=== PATIENT | female | born 1970 | race Caucasian/White ===

== ENCOUNTER 2022-03-05 18:27 | Emergency (ER) | payer SELFPAY ==
[2022-03-05 19:44] LABS: ACETAMINOPHEN <2.0 ug/mL; BLOOD UREA NITROGEN,BUN 13 mg/dL (7.0-18.0); CARBON DIOXIDE,CO2 27.2 mmol/L (21.0-32.0); CHLORIDE,CL 108 mmol/L (98-107); GLUCOSE RANDOM 118 mg/dL (74-106); POTASSIUM,K 3.6 mmol/L (3.5-5.1); SODIUM,NA 145 mmol/L (136-145)
[2022-03-05] MEDS: Acetaminophen 500 MG Tab PO ONE (22:26)
[2022-03-05] MEDS: LORazepam 2 MG/ML SDV IM ONE (23:14)
[2022-03-05] MEDS: Haloperidol Lactate 5 MG/ML SDV IM ONE (23:15)
== END 2022-03-06 11:58 ==
LOC: MW.ED 18:27
DX: F99 Mental disorder, not otherwise specified (principal); R45.851 Suicidal ideations; E11.9 Type 2 diabetes mellitus without complications; E78.00 Pure hypercholesterolemia, unspecified; I10 Essential (primary) hypertension; Z86.73 Personal history of transient ischemic attack (TIA), and cerebral infarction without residual deficits; Z79.82 Long term (current) use of aspirin; Z79.4 Long term (current) use of insulin; Z79.899 Other long term (current) drug therapy; Z20.822 Contact with and (suspected) exposure to COVID-19
CPT/HCPCS: 36415; 80053; 80143; 80179; 80305; 80307; 81001; 81025; 83735; 84443; 85025; 87635; 93005; 96372; 99285; A9270; J1630; J2060; U0002